=== PATIENT | male | born 1990 | race Caucasian/White ===

== ENCOUNTER 2018-04-07 13:59 | Inpatient (IN) ==
[2018-04-07] MEDS: SODIUM CHLOR 0.9% KCL 40 MEQ 40 MEQ/1,000 ML BAG IV SCH ×2 (15:16→20:18)
[2018-04-07 15:25] LABS: Basophils # 0.1 10*3/uL (0.0-0.2); Basophils % 0.9 % (0.0-0.8); Hematocrit 28.6 VOL% (42.0-52.0); Hemoglobin 10.8 GM/DL (14.0-18.0); Immature Granulocytes % 0.4 %; Immature Granulocytes Absolute 0.04 #; Lymphocytes % 10.8 % (21.2-54.2); Mean Corpuscular HGB Conc 37.8 GM/DL (32-36); Mean Corpuscular Hemoglobin 34 PG (27-34); Mean Corpuscular Volume 89.9 FL (87-102); Mean Platelet Volume 9.7 FL (9.6-12.0); Monocytes # 1.5 10*3/uL (0.11-0.8); Monocytes % 16.3 % (1.7-12.7); Neutrophils # 6.5 10*3/uL (1.4-7.4); Neutrophils % 71.6 % (38.7-73.9); Platelet Count 233 T/CUMM (130-400); Red Blood Count 3.18 MC/CUMM (3.8-5.5); Red Cell Distribution Width 15.6 % (9.3-17.3)
[2018-04-07 15:49] LABS: Apearance,Urine CLEAR (Clear); Bilirubin,Urine Negative (Negative); Blood, Urine Negative (Negative); Glucose,Urine (UA) Negative (Negative); Ketones,Urine Negative (Negative); Nitrite,Urine Negative (Negative); Protein,Urine Negative; Squamous Epithelial Cell,Urine Occasional /HPF (0-10); Urine Color Yellow (Yellow); Urine Specific Gravity 1.002 (1.001-1.035); Urine Urobilinogen < 2.0 EU/DL (0.2-1.0); WBC,Urine <1 /HPF (0-6)
[2018-04-07 16:04] LABS: Lymphocytes 9 % (20-55); Segmented Neutrophils 76 % (50-85)
[2018-04-07 16:06] LABS: Hypochromasia 2+; Microcytosis 1+; Pappenheimer Bodies Slight; Platelet Estimate Adequate; Polychromasia 1+
[2018-04-07 16:07] LABS: Total Cells Counted 100
[2018-04-07 16:18] LABS: Albumin 2.1 G/DL (3.4-5.0); Bilirubin,Total 1.3 MG/DL (0.2-1.0); Calcium 6.5 MG/DL (8.5-10.1); Osmolality,Calculated 265.2 MOS/KG (273-304)
[2018-04-07 16:20] LABS: Potassium 2.1 MMOL/L (3.5-5.1)
[2018-04-07] MEDS ORDERED: CALCIUM CHLORIDE 1,000 MG/10 ML SYRINGE IV STA (16:24)
[2018-04-07] MEDS ORDERED: THIAMINE INJ 100 MG, FOLIC ACID INJ 1 MG, MAGNESIUM SULF INJ 2 GM, MULTIVITAMIN INJ 10 ... IV ONE (16:36)
[2018-04-07] MEDS ORDERED: ONDANSETRON 4 MG/2 ML VIAL IV PRN (17:00)
[2018-04-07 17:16] LABS: Lactic Acid 11.1 MMOL/L (0.4-2.0)
[2018-04-07 17:42] LABS: Barbiturates Screen,Urine Negative (Negative); Benzodiazepines Screen,Urine Negative (Negative); Cannabinoid Screen,Urine Negative (Negative); Opiate Screen,Urine Negative (Negative); Phencyclidine Screen,Urine Negative (Negative)
[2018-04-07] MEDS: POTASSIUM CHLORIDE 20 MEQ TABLET PO SCH ×2 (20:19→23:27)
[2018-04-07] MEDS: ACETAMINOPHEN 325 MG TABLET PO PRN (23:27)
[2018-04-07] MEDS: LORazepam 2 MG/1 ML VIAL IV PRN (23:28)
[2018-04-08 04:00] LABS: Basophils # 0.1 10*3/uL (0.0-0.2); Basophils % 0.9 % (0.0-0.8); Eosinophils % 0.4 % (0.00-10.9); Hematocrit 26.5 VOL% (42.0-52.0); Hemoglobin 9.6 GM/DL (14.0-18.0); Immature Granulocytes % 0.4 %; Immature Granulocytes Absolute 0.03 #; Lymphocytes # 1.9 10*3/uL (1.4-4.0); Lymphocytes % 22.5 % (21.2-54.2); Mean Corpuscular HGB Conc 36.2 GM/DL (32-36); Mean Corpuscular Hemoglobin 33 PG (27-34); Mean Corpuscular Volume 92.3 FL (87-102); Mean Platelet Volume 9.9 FL (9.6-12.0); Monocytes # 1.3 10*3/uL (0.11-0.8); Monocytes % 15.3 % (1.7-12.7); Neutrophils # 5.2 10*3/uL (1.4-7.4); Neutrophils % 60.5 % (38.7-73.9); Platelet Count 204 T/CUMM (130-400); Red Blood Count 2.87 MC/CUMM (3.8-5.5); White Blood Count 8.5 T/CUMM (4-12)
[2018-04-08] MEDS: POTASSIUM CHLORIDE 20 MEQ TABLET PO SCH ×6 (04:09→23:43)
[2018-04-08] MEDS: LORazepam 2 MG/1 ML VIAL IV PRN (04:13)
[2018-04-08 04:22] LABS: Calcium 6.5 MG/DL (8.5-10.1); Potassium 2.8 MMOL/L (3.5-5.1)
[2018-04-08 04:24] LABS: Albumin 1.7 G/DL (3.4-5.0); Bilirubin,Direct 0.88 MG/DL (0.0-0.20); Bilirubin,Indirect 0.6 MG/DL (0.0-1.0); Bilirubin,Total 1.5 MG/DL (0.2-1.0); Total Protein 4.6 G/DL (6.4-8.3)
[2018-04-08 04:41] LABS: Folate 4.5 NG/ML (5.4-24.0)
[2018-04-08] MEDS: SODIUM CHLOR 0.9% KCL 40 MEQ 40 MEQ/1,000 ML BAG IV SCH ×2 (06:17→16:44)
[2018-04-08] MEDS: MULTIVITAMIN (CENTRUM) TABLET PO SCH (10:26)
[2018-04-08] MEDS: THIAMINE 100 MG TABLET PO SCH (10:27)
[2018-04-08] MEDS: FOLIC ACID 1 MG TABLET PO SCH (10:27)
[2018-04-08] MEDS: ACETAMINOPHEN 325 MG TABLET PO PRN ×2 (13:04→23:48)
[2018-04-08] MEDS: ZALEPLON 5 MG CAPSULE PO PRN (20:27)
[2018-04-09] MEDS: SODIUM CHLOR 0.9% KCL 40 MEQ 40 MEQ/1,000 ML BAG IV SCH ×2 (03:17→14:53)
[2018-04-09 07:42] LABS: Basophils # 0.1 10*3/uL (0.0-0.2); Basophils % 0.6 % (0.0-0.8); Eosinophils # 0.1 10*3/uL (0.0-0.87); Eosinophils % 0.8 % (0.00-10.9); Hematocrit 26.6 VOL% (42.0-52.0); Hemoglobin 8.9 GM/DL (14.0-18.0); Immature Granulocytes % 1.2 %; Immature Granulocytes Absolute 0.09 #; Lymphocytes # 1.8 10*3/uL (1.4-4.0); Lymphocytes % 22.9 % (21.2-54.2); Mean Corpuscular HGB Conc 33.5 GM/DL (32-36); Mean Corpuscular Hemoglobin 33 PG (27-34); Mean Corpuscular Volume 98.2 FL (87-102); Mean Platelet Volume 11.3 FL (9.6-12.0); Monocytes % 13.3 % (1.7-12.7); Neutrophils # 4.8 10*3/uL (1.4-7.4); Neutrophils % 61.2 % (38.7-73.9); Platelet Count 150 T/CUMM (130-400); Red Blood Count 2.71 MC/CUMM (3.8-5.5); Red Cell Distribution Width 16.5 % (9.3-17.3); White Blood Count 7.8 T/CUMM (4-12)
[2018-04-09 08:07] LABS: Calcium 6.9 MG/DL (8.5-10.1); Osmolality,Calculated 275.3 MOS/KG (273-304); Potassium 3.9 MMOL/L (3.5-5.1)
[2018-04-09 08:10] LABS: Bilirubin,Direct 0.97 MG/DL (0.0-0.20); Bilirubin,Indirect 0.8 MG/DL (0.0-1.0); Bilirubin,Total 1.8 MG/DL (0.2-1.0); Total Protein 4.7 G/DL (6.4-8.3)
[2018-04-09] MEDS: THIAMINE 100 MG TABLET PO SCH (10:32)
[2018-04-09] MEDS: FOLIC ACID 1 MG TABLET PO SCH (10:32)
[2018-04-09] MEDS: MULTIVITAMIN (CENTRUM) TABLET PO SCH (10:33)
[2018-04-09] MEDS ORDERED: MAGNESIUM SULF RIDER 2 GM in PREMIX 1 EACH IV ONE (10:51)
[2018-04-09 11:34] LABS: Free T4 (Free Thyroxine) 1.12 NG/DL (0.76-1.46); Thyroid Stimulating Hormone 7.52 uIU/ml (0.358-3.74)
[2018-04-09] MEDS ORDERED: CALCIUM CHLORIDE 2,000 MG in SODIUM CHLORIDE 0.9% 100 ML IV ONE (12:00)
[2018-04-09] MEDS: METOPROLOL TARTRATE 25 MG TABLET PO SCH ×2 (13:02→21:40)
[2018-04-09] MEDS ORDERED: ERGOCALCIFEROL 50,000 UNIT CAPSULE PO SCH (13:30)
[2018-04-09 14:26] LABS: HIV Antigen/Antibody Result Nonreactive (Nonreactive)
[2018-04-09] MEDS: chlordiazePOXIDE 10 MG CAPSULE PO SCH ×2 (17:21→21:40)
[2018-04-09] MEDS: ZALEPLON 5 MG CAPSULE PO PRN (21:48)
[2018-04-09] MEDS: METHOCARBAMOL 750 MG TABLET PO PRN (22:46)
[2018-04-10] MEDS: SODIUM CHLOR 0.9% KCL 40 MEQ 40 MEQ/1,000 ML BAG IV SCH ×3 (02:46→18:09)
[2018-04-10 05:17] LABS: Basophils # 0.1 10*3/uL (0.0-0.2); Eosinophils # 0.2 10*3/uL (0.0-0.87); Eosinophils % 1.1 % (0.00-10.9); Hematocrit 29.3 VOL% (42.0-52.0); Hemoglobin 9.9 GM/DL (14.0-18.0); Immature Granulocytes % 3.6 %; Immature Granulocytes Absolute 0.48 #; Lymphocytes # 2.6 10*3/uL (1.4-4.0); Lymphocytes % 19.8 % (21.2-54.2); Mean Corpuscular HGB Conc 33.8 GM/DL (32-36); Mean Corpuscular Hemoglobin 34 PG (27-34); Mean Corpuscular Volume 99.3 FL (87-102); Mean Platelet Volume 11.3 FL (9.6-12.0); Monocytes % 7.1 % (1.7-12.7); NRBC # 0.17 10*3/uL; Neutrophils % 67.4 % (38.7-73.9); Platelet Count 170 T/CUMM (130-400); Red Blood Count 2.95 MC/CUMM (3.8-5.5); White Blood Count 13.3 T/CUMM (4-12)
[2018-04-10 05:43] LABS: Hypochromasia 1+; Macrocytosis Slight; Platelet Estimate Normal; Polychromasia Slight
[2018-04-10 05:52] LABS: Calcium 7.5 MG/DL (8.5-10.1); Osmolality,Calculated 274.4 MOS/KG (273-304); Potassium 4.4 MMOL/L (3.5-5.1)
[2018-04-10 06:23] LABS: Bilirubin,Total 1.2 MG/DL (0.2-1.0); Calcium 7.6 MG/DL (8.5-10.1); Osmolality,Calculated 274.4 MOS/KG (273-304); Potassium 4.4 MMOL/L (3.5-5.1); Total Protein 5.6 G/DL (6.4-8.3)
[2018-04-10] MEDS: METOPROLOL TARTRATE 25 MG TABLET PO SCH ×2 (09:07→20:18)
[2018-04-10] MEDS: CHOLECALCIFEROL 1,000 UNIT TABLET PO SCH (09:07)
[2018-04-10] MEDS: FOLIC ACID 1 MG TABLET PO SCH (09:07)
[2018-04-10] MEDS: chlordiazePOXIDE 10 MG CAPSULE PO SCH ×3 (09:08→20:18)
[2018-04-10] MEDS: THIAMINE 100 MG TABLET PO SCH (09:08)
[2018-04-10] MEDS: METHOCARBAMOL 750 MG TABLET PO PRN ×2 (09:08→20:18)
[2018-04-10] MEDS: MULTIVITAMIN (CENTRUM) TABLET PO SCH (09:08)
[2018-04-10 10:12] LABS: % Iron Saturation 34.8 % (18-50); Ferritin 845.4 ng/ml (26-388)
[2018-04-10 10:55] LABS: Hepatitis A Ab IgM Quant 0.21 Index; Hepatitis A Ab IgM Result Negative (Negative); Hepatitis B Core IgM Result Negative (Negative); Hepatitis B Surface Ag Quant < 0.10 Index; Hepatitis B Surface Ag Result Negative (Negative); Hepatitis C Virus Ab Quant 0.02 Index; Hepatitis C Virus Ab Result Negative (Negative)
[2018-04-10] MEDS: CALCIUM (CARBONATE) 600 MG TABLET PO SCH (18:09)
[2018-04-11 05:59] LABS: Basophils # 0.1 10*3/uL (0.0-0.2); Basophils % 0.9 % (0.0-0.8); Eosinophils # 0.1 10*3/uL (0.0-0.87); Eosinophils % 0.7 % (0.00-10.9); Hematocrit 30.3 VOL% (42.0-52.0); Hemoglobin 9.6 GM/DL (14.0-18.0); Immature Granulocytes % 3.8 %; Immature Granulocytes Absolute 0.44 #; Lymphocytes # 2.1 10*3/uL (1.4-4.0); Lymphocytes % 17.7 % (21.2-54.2); Mean Corpuscular HGB Conc 31.7 GM/DL (32-36); Mean Corpuscular Hemoglobin 34 PG (27-34); Mean Corpuscular Volume 107.4 FL (87-102); Mean Platelet Volume 10.9 FL (9.6-12.0); Monocytes % 8.1 % (1.7-12.7); NRBC # 0.04 10*3/uL; Neutrophils # 8.1 10*3/uL (1.4-7.4); Neutrophils % 68.8 % (38.7-73.9); Platelet Count 136 T/CUMM (130-400); Red Blood Count 2.82 MC/CUMM (3.8-5.5); Red Cell Distribution Width 18.6 % (9.3-17.3); White Blood Count 11.7 T/CUMM (4-12)
[2018-04-11 06:01] LABS: Bilirubin,Total 0.9 MG/DL (0.2-1.0); Calcium 7.8 MG/DL (8.5-10.1); Osmolality,Calculated 274.4 MOS/KG (273-304); Potassium 4.7 MMOL/L (3.5-5.1); Risk Ratio 6.38; Total Protein 5.3 G/DL (6.4-8.3); VLDL CHOLESTEROL 19.6 MG/DL
[2018-04-11 06:20] LABS: Hypochromasia 1+; Macrocytosis Slight; Ovalocytes Slight; Platelet Estimate Normal; Polychromasia Slight
[2018-04-11] MEDS: METOPROLOL TARTRATE 25 MG TABLET PO SCH ×2 (10:12→21:58)
[2018-04-11] MEDS: FOLIC ACID 1 MG TABLET PO SCH (10:12)
[2018-04-11] MEDS: CALCIUM (CARBONATE) 600 MG TABLET PO SCH (10:12)
[2018-04-11] MEDS: CHOLECALCIFEROL 1,000 UNIT TABLET PO SCH (10:12)
[2018-04-11] MEDS: MULTIVITAMIN (CENTRUM) TABLET PO SCH (10:12)
[2018-04-11] MEDS: chlordiazePOXIDE 10 MG CAPSULE PO SCH ×3 (10:12→21:59)
[2018-04-11] MEDS: THIAMINE 100 MG TABLET PO SCH (10:13)
[2018-04-11] MEDS: SODIUM CHLOR 0.9% KCL 40 MEQ 40 MEQ/1,000 ML BAG IV SCH (13:50)
[2018-04-11] MEDS ORDERED: SPIRONOLACTONE 25 MG TABLET PO SCH (21:00)
[2018-04-11] MEDS ORDERED: traZODone 50 MG TABLET PO SCH (21:00)
[2018-04-11] MEDS: METHOCARBAMOL 750 MG TABLET PO PRN (21:58)
[2018-04-12] MEDS ORDERED: SPIRONOLACTONE 50 MG TABLET PO SCH ×3 (09:00→19:31)
[2018-04-12] MEDS: METOPROLOL TARTRATE 25 MG TABLET PO SCH (09:50)
[2018-04-12] MEDS: FOLIC ACID 1 MG TABLET PO SCH (09:50)
[2018-04-12] MEDS: CHOLECALCIFEROL 1,000 UNIT TABLET PO SCH (09:50)
[2018-04-12] MEDS: CALCIUM (CARBONATE) 600 MG TABLET PO SCH (09:50)
[2018-04-12] MEDS: THIAMINE 100 MG TABLET PO SCH (09:51)
[2018-04-12] MEDS: chlordiazePOXIDE 10 MG CAPSULE PO SCH (09:51)
[2018-04-12] MEDS: MULTIVITAMIN (CENTRUM) TABLET PO SCH (10:03)
[2018-04-12 10:52] VITALS: BP 131/69
[2018-04-12 11:22] LABS: Parvovirus B19 By Rapid PCR Negative; Source PLASMA
[2018-04-17 17:26] LABS: Q Fever IgM Phase I Screen NEGATIVE (NEGATIVE); Q Fever IgM Phase II Screen NEGATIVE (NEGATIVE)
== END 2018-04-12 13:45 | disposition home or self-care (01) | DRG 641 ==
LOC: N.ED 13:59 → SUATTDRO 16:42 → N.EDINP 16:42 → N.3E 18:32
PROVIDERS: ADMIT Internal Medicine; ATTEND Internal Medicine Infectious Disease